=== PATIENT | female | born 1965 | race African-American/Black ===

== ENCOUNTER → 2017-01-04 | Outpatient (CLI) | payer OTHER ==
[~2017-01-04] MED LIST: AMLODIPINE BESY10 MG PO; B-COMPLEX-VITA1 EACH PO; FOLIC ACID0.4 MG PO; HYDROCHLOROTHIA25 MG PO; IBUPROFEN600 MG PO; MAGNESIUM400 M1 PO; MULTIPLE VITAM1 EAC1 PO; PREDNISONE50 MG PO; TRAMADOL HCL50 MG PO; ULTRAM50 MG PO; VITAMIN D-32000 UNI2 PO; ZINC30 MG PO
== END | disposition home or self-care (01) ==
LOC: NUC 08:58
DX: M54.6 Pain in thoracic spine (principal)
CPT/HCPCS: 78315; A9503